=== PATIENT | female | born 1955 | race Native Hawaiian/Other Pacific Islander ===

== ENCOUNTER 2021-01-10 18:43 | Emergency (ER) | payer OTHER ==
[2021-01-10] MEDS ORDERED: TETANUS,DIPH,PERTUSS(ACELL) VACCINE 0.5 ML SYRINGE IM ONE (20:54)
--- NOTE | 2021-01-10 21:03 | Emergency Department Report ---
ED Upper Extremity Inj HPI - General Chief Complaint: Extremity Injury, Upper Stated Complaint: RT THUMB CUT Source: patient Mode of arrival: Ambulatory Limitations: No Limitations - History of Present Illness Initial Comments: Patient is a 65-year-old female with a history of hypertension, [id number] diabetes, chronic osteoarthritis and asthma who presents to the ED with complaint of acute onset persistent painful right thumb swollen open wound with mild erythema for the last 28 hours after she accidentally cut her right thumb when cutting onions about 20 hours ago. Patient states that in the last 8 hours, the pain and swelling of worsened as well as erythema. Patient states that she is not up-to-date with all her tetanus vaccinations and was advised to come to the ED to obtain one. Patient denies numbness and tingling or weakness of right hand or right arm, fall, nausea, vomiting, fever and chills or dizziness. MD Complaint: Injury to:: right, finger (Thumb laceration) -: Sudden, hour(s) (20) Other Extremity Injury: Fingers: Right (right thumb laceration with swelling and pain) Other Injuries: none Handedness: right Place: home Severity scale (0 -10): 7 Improves With: movement Worsens With: movement of extremity Context: laceration, injury Associated Symptoms: denies other symptoms. denies: weakness, numbness, neck pain, suspects foreign body, nausea/vomiting, heard/felt popping sensat, other - Related Data Previous Rx's Medication Instructions Recorded Last Taken Type methOCARBAMOL [Robaxin TAB] 500 mg PO BID PRN #14 tab 08/30/15 Unknown Rx traMADoL [Ultram 50 MG tab] 50 mg PO Q4HR PRN #20 tablet 08/30/15 Unknown Rx Ibuprofen [Motrin] 800 mg PO Q8HR PRN #30 tablet 01/10/21 Unknown Rx cephALEXin [Keflex] 500 mg PO Q8HR #30 cap 01/10/21 Unknown Rx Allergies Allergy/AdvReac Type Severity Reaction Status Date / Time No Known Allergies Allergy Verified 08/30/15 11:49 ED Review of Systems ROS: Stated complaint: RT THUMB CUT Other details as noted in HPI Constitutional: denies: chills, fever Eyes: denies: eye pain, eye discharge, vision change ENT: denies: ear pain, throat pain Respiratory: denies: cough, shortness of breath, wheezing Cardiovascular: denies: chest pain, palpitations Endocrine: no symptoms reported Gastrointestinal: denies: abdominal pain, nausea, diarrhea Genitourinary: denies: urgency, dysuria, discharge Musculoskeletal: arthralgia (right thumb laceration). denies: back pain, joint swelling Skin: rash, other (swollen distal right thumb pain with mild erythema due to an open laceration wound). denies: lesions Neurological: denies: headache, weakness, paresthesias Psychiatric: denies: anxiety, depression Hematological/Lymphatic: denies: easy bleeding, easy bruising ED Past Medical Hx - Past Medical History Hx Hypertension: Yes Hx Diabetes: Yes Hx Arthritis: Yes Hx Asthma: Yes - Surgical History Additional Surgical History: X 3. BILATERAL SHOULDER SURGERY/ ROTATOR CUFF - Social History Smoking Status: Never Smoker Substance Use Type: None - Medications Home Medications: Home Medications Medication Instructions Recorded Confirmed Last Taken Type methOCARBAMOL [Robaxin TAB] 500 mg PO BID PRN #14 tab 08/30/15 Unknown Rx traMADoL [Ultram 50 MG tab] 50 mg PO Q4HR PRN #20 tablet 08/30/15 Unknown Rx Ibuprofen [Motrin] 800 mg PO Q8HR PRN #30 tablet 01/10/21 Unknown Rx cephALEXin [Keflex] 500 mg PO Q8HR #30 cap 01/10/21 Unknown Rx ED Physical Exam - General Limitations: No Limitations General appearance: alert, in no apparent distress - Head Head exam: Present: atraumatic, normocephalic, normal inspection - Eye Eye exam: Present: normal appearance, PERRL, EOMI Pupils: Present: normal accommodation - ENT ENT exam: Present: normal exam, normal orophraynx, mucous membranes moist, TM's normal bilaterally, normal external ear exam - Neck Neck exam: Present: normal inspection, full ROM - Respiratory Respiratory exam: Present: normal lung sounds bilaterally. Absent: respiratory distress, wheezes, rales, rhonchi, chest wall tenderness, accessory muscle use, decreased breath sounds, prolonged expiratory - Cardiovascular Cardiovascular Exam: Present: regular rate, normal rhythm, normal heart sounds. Absent: systolic murmur, diastolic murmur, rubs, gallop - GI/Abdominal GI/Abdominal exam: Present: soft, normal bowel sounds. Absent: tenderness, guarding, rebound, hyperactive bowel sounds, hypoactive bowel sounds - Extremities Exam Extremities exam: Present: normal inspection, full ROM, tenderness (Palpable tenderness of right thumb with moderate swelling and erythema due to a 4 cm the laceration) - Back Exam Back exam: Present: normal inspection, full ROM. Absent: tenderness, CVA tenderness (R), CVA tenderness (L), muscle spasm, paraspinal tenderness, vertebral tenderness - Neurological Exam Neurological exam: Present: alert, oriented X3, CN II-XII intact, normal gait, reflexes normal - Psychiatric Psychiatric exam: Present: normal affect, normal mood - Skin Skin exam: Present: warm, dry, intact, normal color, rash (Swollen, erythematous, tender right thumb laceration wound), erythema ED Course Vital Signs 01/10/21 01/10/21 20:45 20:49 Respiratory 18 Rate Blood Pressure 171/74 ED Medical Decision Making - Medical Decision Making This is a 65-year-old female with a history of hypertension, [id number] diabetes, chronic osteoarthritis and asthma who presents to the ED with complaint of acute onset persistent painful right thumb swollen open wound with mild erythema for the last 28 hours after she accidentally cut her right thumb when cutting onions about 20 hours ago. Patient states that in the last 8 hours, the pain and swelling of worsened as well as erythema. Patient states that she is not up-to-date with all her tetanus vaccinations and was advised to come to the ED to obtain one. In the ED, patient is alert and oriented x3 and is not in any distress. The right thumb laceration was cleaned and bacitracin ointment applied to the partially closed wound. The wound was th en dressed appropriately in the ED. Patient also received booster tetanus vaccinations in the ED. Patient was therefore discharged home on pain medications and prophylactic antibiotics and advised to follow-up with her primary care physician in 5 to 7 days for reevaluation or return to the ED immediately if symptoms get worse. - Differential Diagnosis laceration of finger; cellulitis of thumb; infected laceration wound Critical care attestation.: If time is entered above; I have spent that time in minutes in the direct care of this critically ill patient, excluding procedure time. ED Disposition Clinical Impression: Cellulitis of right thumb Laceration of right thumb with infection Qualifiers: Encounter type: initial encounter Qualified Code(s): S61.011A - Laceration without foreign body of right thumb without damage to nail, initial encounter Disposition: DC-01 TO HOME OR SELFCARE Is pt being admited?: No Does the pt Need Aspirin: No Condition: Stable Instructions: Laceration Care, Adult, [id number], Fingertip Infection, Nonsutured Laceration Care Additional Instructions: Take medication with food, get plenty of fluids and follow-up with your primary care physician in 7 to 10 days for reevaluation. Return to the ED immediately if symptoms get worse. Prescriptions: cephALEXin [Keflex] 500 mg PO Q8HR #30 cap Ibuprofen [Motrin] 800 mg PO Q8HR PRN #30 tablet PRN Reason: Pain , Severe (7-10) Referrals: [facility] [Provider Group] - 7-10 days Time of Disposition: 21:09 Print Language: FAROESE
[2021-01-10 21:04] VITALS: BP 171/74
== END 2021-01-10 22:48 | disposition home or self-care (01) ==
LOC: ED 18:43
DX: S61.011A Laceration without foreign body of right thumb without damage to nail, initial encounter (principal); L03.011 Cellulitis of right finger; I10 Essential (primary) hypertension; E11.9 Type 2 diabetes mellitus without complications; M19.91 Primary osteoarthritis, unspecified site; J45.909 Unspecified asthma, uncomplicated; Z98.890 Other specified postprocedural states; Z79.899 Other long term (current) drug therapy; W26.0XXA Contact with knife, initial encounter; Y93.89 Activity, other specified; Y92.89 Other specified places as the place of occurrence of the external cause; Y99.8 Other external cause status
CPT/HCPCS: 90471; 90715; 99282